=== PATIENT | male | born 2005 | race Caucasian/White ===

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

== ENCOUNTER 2023-01-23 13:38 | Outpatient (REF) | payer MEDICAID, SELFPAY ==
[2023-01-24 09:43] LABS: Hemoglobin S Screen Negative (Negative)
[2023-01-24 13:41] LABS: Chlamydia Result Negative (Negative); GC Result Negative (Negative)
== END 2023-01-23 13:39 | disposition home or self-care (01) ==
LOC: NCHCN 13:38
PROVIDERS: PCP Registered Nurse; Visit Provider Family Medicine
DX: Z13.0 Encounter for screening for diseases of the blood and blood-forming organs and certain disorders involving the immune mechanism (principal); Z11.3 Encounter for screening for infections with a predominantly sexual mode of transmission
CPT/HCPCS: 87491; 87591; 85660